=== PATIENT | female | born 1965 | race Caucasian/White ===

== ENCOUNTER 2019-01-08 05:37 | Day surgery (SDC) | payer BC ==
[~2019-01-08] VITALS: Ht 162.6 cm; Wt 64.0 kg
[~2019-01-08 05:37] MED LIST: HYDR-3240 PO
[2019-01-08] MEDS ORDERED: LACTATED RINGERS 1,000 ML IV SCH (06:07)
[2019-01-08 06:09] VITALS: BP 121/80
[2019-01-08] MEDS ORDERED: MIDAZOLAM 1 MG/ML, 2ML ONE (06:17)
[2019-01-08] MEDS ORDERED: FENTANYL PF 250 MCG/5ML ONE (06:17)
[2019-01-08] MEDS ORDERED: ROCURONIUM 10MG/ML,5ML ONE (06:21)
[2019-01-08] MEDS ORDERED: ONDANSETRON 2MG/ML, 2ML ONE (06:21)
[2019-01-08] MEDS ORDERED: GLYCOPYRROLATE 0.2MG/1ML, 5ML ONE (06:21)
[2019-01-08] MEDS ORDERED: CEFAZOLIN 1,000 MG ONE (06:21)
[2019-01-08] MEDS ORDERED: NEOSTIGMINE 1 MG/ML, 10ML ONE (06:21)
[2019-01-08] MEDS ORDERED: PROPOFOL 10 MG/ML, 20ML ONE (06:21)
[2019-01-08] MEDS ORDERED: DEXAMETHASONE 4 MG/ML, 1ML ONE (06:21)
[2019-01-08] MEDS ORDERED: THROMBIN 5,000 UNIT VIAL TP ONE (06:27)
[2019-01-08] MEDS ORDERED: BUPIVACAINE/PF-EPI 0.5% 1:200K ONE (06:27)
[2019-01-08] MEDS ORDERED: BACITRACIN 50,000 UNIT ONE (06:28)
[2019-01-08] MEDS ORDERED: ACETAMINOPHEN 500 MG TABLET PO ONE (06:30)
[2019-01-08] MEDS ORDERED: GABAPENTIN 300 MG CAPSULE PO ONE (06:30)
[2019-01-08] MEDS ORDERED: ONDANSETRON 2MG/ML, 2ML IV PRN (07:00)
[2019-01-08] MEDS ORDERED: HALOPERIDOL 5 MG/ML IV PRN (07:00)
[2019-01-08] MEDS ORDERED: PROMETHAZINE 12.5 MG SUPP PR PRN (07:00)
[2019-01-08] MEDS ORDERED: DIAZEPAM 5 MG/ML, 2ML IVPush PRN (07:00)
[2019-01-08] MEDS ORDERED: LABETALOL 5MG/ML, 20ML IV PRN (07:00)
[2019-01-08] MEDS ORDERED: OXYcodone 5 MG/5 ML ORAL.SOL UDC PO PRN (07:00)
[2019-01-08] MEDS ORDERED: PROMETHAZINE 25 MG/ML, 1ML IM PRN ×2 (07:00)
[2019-01-08] MEDS ORDERED: hydrALAzine 20 MG/ML, 1ML IV PRN (07:00)
[2019-01-08] MEDS ORDERED: ONDANSETRON ODT 8 MG PO PRN (07:00)
[2019-01-08] MEDS ORDERED: MORPHINE SULFATE 4 MG/ML, 1ML IVPush PRN (07:00)
[2019-01-08] MEDS ORDERED: PROMETHAZINE 25 MG/ML, 1ML IV PRN (07:00)
[2019-01-08] MEDS ORDERED: MEPERIDINE/PF 25MG/0.5ML IVPush PRN (07:00)
[2019-01-08] MEDS ORDERED: PROMETHAZINE 25 MG SUPP PR PRN (07:00)
[2019-01-08] MEDS ORDERED: HYDROmorphone 2 MG/ML, 1ML IVPush PRN (07:00)
[2019-01-08] MEDS ORDERED: MEPERIDINE/PF 25MG/ML,1ML ONE (08:14)
[2019-01-08] MEDS ORDERED: FENTANYL PF 100 MCG/2ML ONE (08:23)
[2019-01-08] MEDS ORDERED: OXYcodone 5 MG/5 ML ORAL.SOL UDC ONE (08:24)
[2019-01-08] MEDS: FENTANYL PF 100 MCG/2ML IV PRN ×2 (08:25→08:40)
[2019-01-08] MEDS ORDERED: METHOCARBAMOL 750 MG TABLET PO PRN (10:00)
== END 2019-01-08 12:00 | disposition home or self-care (01) ==
LOC: OUT 05:37
PROVIDERS: ATTEND Neurological Surgery
DX: M51.16 Intervertebral disc disorders with radiculopathy, lumbar region (principal); Z98.890 Other specified postprocedural states; Z87.891 Personal history of nicotine dependence
CPT/HCPCS: 63042; 72100; J0690; J1100; J2175; J2250; J2405; J2704; J2710; J3010; J3490; J7120